=== PATIENT | male | born 1960 | race Two or more races ===

== ENCOUNTER 2020-08-31 12:39 | Emergency (ER) | payer SELFPAY ==
[~2020-08-31] VITALS: Ht 165.1 cm; Wt 81.8 kg
[2020-08-31] MEDS ORDERED: LIDOCAINE-MPF 1%, 5ML INFIL ONE (14:00)
[2020-08-31] MEDS ORDERED: L.E.T SOLUTION TP ONE ×2 (14:00→15:18)
[2020-08-31] MEDS ORDERED: DIPH,PERTUSS(ACELL),TET VAC/PF 0.5 ML IM-VACC ONE ×2 (14:00→15:18)
[2020-08-31] MEDS ORDERED: LIDOCAINE-MPF 1%, 5ML ONE (15:17)
--- NOTE | 2020-08-31 16:30 | NUR ---
PT IN BED WITH STEP SON AT BEDSIDE, RESTING COMFORTABLY WITH LET GEL IN PLACE ON SUPERFICIAL WOUNDS, PT DENIES NEED AT THIS TIME. NO SIGNS OR SYMPTOMS OF ACUTE DSITRSS NOTED RESPIRATIONS EVEN AND UNLABORED
[2020-08-31] MEDS ORDERED: CEFAZOLIN PMX 1GM/50ML 50 ML IV ONE (17:00)
[2020-08-31] MEDS ORDERED: CEFAZOLIN PMX 1GM/50ML 50 ML ONE (17:07)
--- NOTE | 2020-08-31 17:28 | NUR ---
PT IN BED WITH WOUND REPAIR ONGOING BILATERALLY. NO SIGNS OR SYMPTOMS OF ACUTE DISTRSS NOTED RESPIRATIONS EVEN AND UNLABORED PT DENIES NEED OR DISCOMFORT AT THIS TIME
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
[2020-08-31] MEDS ORDERED: NEOSPORIN OINT. PKT 1 PACKET ONE (17:36)
[2020-08-31] MEDS ORDERED: ACETAMINOPHEN 500 MG TABLET PO ONE (18:00)
[2020-08-31] MEDS ORDERED: ACETAMINOPHEN 500 MG TABLET ONE (18:13)
[2020-08-31 18:29] VITALS: BP 122/86
== END 2020-08-31 18:31 | disposition home or self-care (01) ==
LOC: ED 16:15
DX: S61.452A Open bite of left hand, initial encounter (principal); S71.151A Open bite, right thigh, initial encounter; S51.852A Open bite of left forearm, initial encounter; W54.0XXA Bitten by dog, initial encounter; Y93.89 Activity, other specified; Y92.89 Other specified places as the place of occurrence of the external cause; Y99.8 Other external cause status
CPT/HCPCS: 12004; 12032; 73090; 73130; 73590; 90471; 90715; 96365; 99285; J0690; 12002

== ENCOUNTER 2020-09-02 14:02 | Emergency (ER) | payer SELFPAY ==
[~2020-09-02] VITALS: Ht 162.6 cm; Wt 82.9 kg
[2020-09-02 14:13] VITALS: BP 150/87
--- NOTE | 2020-09-02 15:38 | NUR ---
EMT AT BEDSIDE TO CLEAN AND DRESSING AT THIS TIME.
--- NOTE | 2020-09-02 16:07 | NUR ---
Patient given discharge instructions and they have confirmed that they understand the instructions. Patient ambulatory with steady gait.
== END 2020-09-02 16:08 | disposition home or self-care (01) ==
LOC: ED 15:59
DX: Z48.01 Encounter for change or removal of surgical wound dressing (principal)
CPT/HCPCS: 99282

== ENCOUNTER 2020-09-11 15:22 | Emergency (ER) | payer SELFPAY ==
[~2020-09-11] VITALS: Ht 162.6 cm; Wt 81.0 kg
[2020-09-11 15:41] VITALS: BP 147/88
--- NOTE | 2020-09-11 16:07 | NUR ---
dc instructions reviewed
== END 2020-09-11 16:10 | disposition home or self-care (01) ==
LOC: ED 16:05
DX: S81.811D Laceration without foreign body, right lower leg, subsequent encounter (principal); S51.812D Laceration without foreign body of left forearm, subsequent encounter; S61.412D Laceration without foreign body of left hand, subsequent encounter; X58.XXXD Exposure to other specified factors, subsequent encounter; Z48.02 Encounter for removal of sutures
CPT/HCPCS: 99281